=== PATIENT | male | born 1955 | race Caucasian/White ===

== ENCOUNTER 2017-12-03 07:56 | Outpatient (CLI) | payer BC ==
--- NOTE | 2017-12-03 10:24 | MRI ---
LUMBAR SPINE MRI: HISTORY: Back pain (M54.10). TECHNIQUE: Multiplanar, multisequence noncontrast enhanced MR images of the lumbar spine are obtained. FINDINGS: T12-L1: Unremarkable. L1-L2: Unremarkable. L2-L3: Disk desiccation is seen. There is a mild broad-based disk bulge with bilateral facet and li gamentum flavum hypertrophy. This results in mild central and lateral recess stenosis. The neural f oramen are patent. L3-L4: Disk desiccation is seen. There is a broad-based disk bulge with bilateral facet and ligamen shannan flavum hypertrophy. This results in mild central and lateral recess stenosis. The neural forame n are patent. L4-L5: Disk desiccation is seen. There is a broad-based central disk protrusion compressing the the jessica sac, resulting in mild central spinal stenosis. The lateral recesses are patent. No significant evidence of neural foraminal narrowing is seen. Some fluid is seen in the hypertrophied L4-L5 facet joints bilaterally. L5-S1: Disk desiccation is seen. There is minimal anterolisthesis of L5 on S1, measuring approximat taco 3 mm. There are severe facet hypertrophic and degenerative changes, resulting in the facet insta bility and anterolisthesis of L5 on S1. There is a broad-based central disk bulge at L5-S1. IMPRESSION: Broad-based disk bulges at L2-L3 and L3-L4 with broad-based disk protrusion at L4-L5 and broad-based disk bulge at L5-S1. There is anterolisthesis of L5 on S1. Bilateral L5-S1 facet hypertrophic ding es and likely instability are also present. POS: [facility]
== END 2017-12-03 07:57 | disposition home or self-care (01) ==
LOC: SCSMRI 07:56
PROVIDERS: ATTEND Family Medicine
DX: M51.16 Intervertebral disc disorders with radiculopathy, lumbar region (principal); M51.87 Other intervertebral disc disorders, lumbosacral region; M43.16 Spondylolisthesis, lumbar region
CPT/HCPCS: 72148

== ENCOUNTER 2017-12-28 09:43 | Outpatient (CLI) | payer BC ==
--- NOTE | 2017-12-28 11:47 | RAD ---
LUMBAR SPINE: Date: 12/28/17 COMPARISON: None. HISTORY: Back pain, tingling. FINDINGS: Neutral lateral radiograph of the lumbar spine demonstrates no definite anterolisthesis or retrolisth esis. There is facet hypertrophy at L3-4, L4-5, and L5-S1. There is mild anterior osteophyte format ion at L2-3 and L3-4. Flexion imaging demonstrates anterolisthesis of l5 on S1 measuring 7.0 mm. With extension, there is n o definite anterolisthesis or retrolisthesis. IMPRESSION: Mild anterolisthesis of L5 on S1 with flexion. Multilevel lower lumbar spine facet degenerative toña butler. POS: [facility]
== END 2017-12-28 09:44 | disposition home or self-care (01) ==
LOC: RAD 09:43
PROVIDERS: ATTEND Nurse Practitioner Family
DX: M54.5 Low back pain (principal); R20.2 Paresthesia of skin; M47.896 Other spondylosis, lumbar region; M43.16 Spondylolisthesis, lumbar region
CPT/HCPCS: 72120

== ENCOUNTER 2018-01-07 08:14 | Outpatient (CLI) | payer BC ==
--- NOTE | 2018-01-07 10:35 | MRI ---
MRI CERVICAL SPINE WITHOUT CONTRAST: Date: 01/07/18 Multiplanar, multisequential imaging of cervical spine obtained. INDICATION: Cervical pain. Left shoulder pain. FINDINGS: Cervical vertebra maintain height. Degenerative disc changes are seen at all levels with loss of disc space, most prominent at C5-6 and C6-7. There is slight posterior listhesis at C5-6 and C6-7 with a more prominent anterolisthesis at C7-T1 measured at approximately 3.0 mm. At C3-4, disc bulge and spondylosis flattens the thecal sac. The anterior subarachnoid space is prese rved. There is mild foraminal narrowing bilaterally due to facet and uncinate hypertrophy. At C4-5, disc bulge and spondylosis is more prominent effacing the anterior subarachnoid space and ab utting the anterior cord. Bilateral foraminal narrowing due to facet and uncinate hypertrophy. At C5-6, slight posterior subluxation as noted above. Disc bulge and spondylosis effaces the anterior subarachnoid space. Bilateral foraminal narrowing due to facet and uncinate hypertrophy. At C6-7, slight posterior listhesis is noted above. Disc bulge and spondylosis is prominent, effacing the anterior subarachnoid space. No significant cord impingement. Bilateral foraminal narrowing due to facet and uncinate hypertrophy. At C7-T1, anterior listhesis up to 3.0 mm is noted above. Disc bulge and spondylosis efface the anter ior subarachnoid space. No evidence of cord impingement. Foramina appear patent. Cord signal is normal. IMPRESSION: Degenerative disc changes throughout the cervical spine with loss of disc space. Mild subluxation as described above and posterior spondylitic changes at each level with foraminal encroachment as noted above. POS: [facility]
== END 2018-01-07 08:15 | disposition home or self-care (01) ==
LOC: TBSIIMAG 08:14
PROVIDERS: ATTEND Nurse Practitioner Family
DX: M50.10 Cervical disc disorder with radiculopathy, unspecified cervical region (principal); M46.92 Unspecified inflammatory spondylopathy, cervical region; M43.5X2 Other recurrent vertebral dislocation, cervical region
CPT/HCPCS: 72141

== ENCOUNTER 2018-01-11 09:37 | Outpatient (CLI) | payer BC ==
--- NOTE | 2018-01-11 12:09 | RAD ---
6 VIEWS OF THE CERVICAL SPINE: Date: 01/11/18 INDICATION: Cervical radicular pain. FINDINGS: There is slight anterior translation of C3 on C4 and C4 on C5 with slight translation of C5 on C6. No definite abnormal translational motion is seen on the flexion and extension radiographs. There is mu ltilevel disc degenerative and facet osteoarthritic change of the cervical spine. Lateral masses are symmetric. Lung apices are clear. IMPRESSION: 1. Moderate to severe multilevel spondylosis of cervical spine. 2. Mild anterior translation of C3 on C4 and C4 on C5 with mild posterior translation of C5 on C6. W ith flexion and extension, no abnormal translational motion is demonstrated. POS: [facility]
== END 2018-01-11 09:38 | disposition home or self-care (01) ==
LOC: RAD 09:37
PROVIDERS: ATTEND Nurse Practitioner Family
DX: M47.22 Other spondylosis with radiculopathy, cervical region (principal)
CPT/HCPCS: 72052

== ENCOUNTER 2019-02-15 14:35 | Outpatient (CLI) | payer BC ==
--- NOTE | 2019-02-15 15:02 | RAD ---
EXAM: Chest PA and lateral: HISTORY: Persistent cough x1 month COMPARISON: 01/31/2013 FINDINGS: Heart: Normal cardiac silhouette Aorta: Unremarkable Pulmonary vessels: Normal Costophrenic angles: Costophrenic angles are clear. Lungs: No masses or consolidation. Chronic changes in the left lung base. Pneumothorax: No pneumothorax Osseous structures: No osseous abnormalities IMPRESSION: No acute cardiopulmonary process.
== END 2019-02-15 14:36 | disposition home or self-care (01) ==
LOC: SCSRAD 14:35
PROVIDERS: ATTEND Family Medicine
DX: J45.991 Cough variant asthma (principal)
CPT/HCPCS: 71046

== ENCOUNTER 2020-08-06 10:34 | Outpatient (CLI) | payer BC, MEDICARE ==
--- NOTE | 2020-08-06 11:30 | MRI ---
MRI of thethoracic spine without contrast: 08/06/2020 COMPARISON:None available HISTORY:Thoracic spine radiculopathy TECHNIQUE: Multiplanar multisequence MR imaging of thethoracic spine without contrast Findings:Significant multilevel lower cervical spine degenerative change is present, not well assesse d on this exam. At C6-7 there is anterolisthesis measuring approximately 4 mm with associated incompletely assessed central canal and neural foraminal stenosis. T1-2: Mild disc bulge and disc desiccation. Mild bilateral facet hypertrophy with mild right and mode rate left neural foraminal stenosis. T2-3: There is disc space narrowing with disc desiccation and minimal disc bulge. Mild bilateral face t hypertrophy with no significant central canal or neural foraminal stenosis. T3-4: There is disc space narrowing with disc desiccation. There is a small right paracentral disc pr otrusion with mild right lateral central canal stenosis. No significant neural foraminal stenosis. T4-5: Unremarkable T5-6: There is disc space narrowing and disc desiccation. Mild right neural foraminal stenosis on the basis of facet hypertrophy. T6-7: Unremarkable T7-8: Mild disc bulge with no significant central canal stenosis. Bilateral facet hypertrophy with mi ld bilateral neural foraminal stenosis. T8-9: Bilateral facet hypertrophy. Disc desiccation and mild disc bulge. Mild right and mild/moderate left neural foraminal stenosis. No significant central canal stenosis. T9-10: Small central disc protrusion with no associated central canal stenosis. Mild bilateral neural foraminal stenosis on the basis of facet hypertrophy. T10-11:No central canal or neural foraminal stenosis. T11-12:No central canal or neural foraminal stenosis. T12-L1:No central canal or neural foraminal stenosis. Small fat-containing Bochdalek hernia on the right. Thoracic cord demonstrates normal caliber and sig nal intensity. IMPRESSION:Multilevel degenerative change within the thoracic spine
== END 2020-08-06 10:35 | disposition home or self-care (01) ==
LOC: TBSIIMAG 10:34
PROVIDERS: ATTEND Nurse Practitioner Family
DX: M47.24 Other spondylosis with radiculopathy, thoracic region (principal)
CPT/HCPCS: 72146

== ENCOUNTER 2021-12-26 11:35 | Outpatient (CLI) | payer BC, MEDICARE | END 2021-12-26 11:36 | disposition home or self-care (01) | LOC: SCSMRI 11:35 | PROVIDERS: ATTEND Specialist | DX: M51.16 Intervertebral disc disorders with radiculopathy, lumbar region (principal); M47.26 Other spondylosis with radiculopathy, lumbar region; M48.061 Spinal stenosis, lumbar region without neurogenic claudication | CPT/HCPCS: 72148 ==

== ENCOUNTER 2022-01-20 11:39 | Outpatient (CLI) | payer BC, MEDICARE ==
[2022-01-20 12:15] LABS: Hemoglobin 15.9 g/dL (13.5-17.5); Mean Corpuscular HGB CONC 33.9 g/dL (32.0-36.0); Mean Corpuscular Hemoglobin 30.1 pg (27.0-33.0); Mean Corpuscular Volume 88.8 fl (81.2-95.1); Platelet Count 299 10x3/uL (150-450); RBC Distribution Width 12.9 % (11.5-14.5); Red Blood Cell (RBC) Count 5.28 10x6/uL (4.32-5.72); White Blood Cell (WBC) Count 11.8 10x3/uL (3.5-10.5)
[2022-01-20 12:25] LABS: INR-International Normal Ratio 0.9; PTT 26.2 sec (22.0-33.0); Prothrombin Time 9.8 sec (9.5-12.1)
[2022-01-20 12:29] LABS: Anion Gap 16 mmol/L (10-20); BUN (Urea Nitrogen) 21 mg/dL (8.4-25.7); Calc. Creatinine Clearance 0 mL/min (70-130); Calcium 9.9 mg/dL (7.8-10.44); Carbon Dioxide 25 mmol/L (23-31); Chloride 105 mmol/L (98-107); Estimated GFR 68; Glucose 116 mg/dL (80-115); Potassium 4.7 mmol/L (3.5-5.1); Sodium 141 mmol/L (136-145)
== END 2022-01-20 11:40 | disposition home or self-care (01) ==
LOC: LABBT 11:39
PROVIDERS: ATTEND Surgery
DX: Z01.818 Encounter for other preprocedural examination (principal); M51.16 Intervertebral disc disorders with radiculopathy, lumbar region; M48.061 Spinal stenosis, lumbar region without neurogenic claudication; Z20.822 Contact with and (suspected) exposure to COVID-19
CPT/HCPCS: 80048; 85027; 85610; 85730; 87811; 93005; 93010

== ENCOUNTER 2022-01-23 07:23 | Observation (INO) | payer BC, MEDICARE ==
[2022-01-23] MEDS ORDERED: Thrombin 5000 UNITS/5 ML VIAL ONE ×2 (09:11→11:44)
[2022-01-23] MEDS ORDERED: Ondansetron PF 4 MG/2 ML Vial IVP PRN (09:40)
[2022-01-23] MEDS ORDERED: CEFAZOLIN 2 GM VIAL ONE (09:40)
[2022-01-23] MEDS ORDERED: traMADol HCl 50 MG TAB PO PRN (09:40)
[2022-01-23] MEDS ORDERED: Morphine 2 MG/ML VIAL SLOW IVP PRN (09:40)
[2022-01-23] MEDS ORDERED: Acetaminophen 325 MG TAB PO PRN (09:40)
[2022-01-23] MEDS ORDERED: Sodium Chloride 0.9% 100 ML ONE (09:41)
[2022-01-23] MEDS ORDERED: tiZANidine HCl 4 MG TAB PO PRN (09:42)
[2022-01-23] MEDS ORDERED: ceFAZolin 2 GM/Dextrose 50 ML 2 GM in Premix Bag 1 BAG IVPB SCH (09:45)
[2022-01-23] MEDS ORDERED: fentaNYL Citrate/PF 100 MCG/2 ML SYRINGE ONE (09:51)
[2022-01-23] MEDS ORDERED: Glycopyrrolate 0.2 MG/ML 5 ML SYRINGE ONE (09:58)
[2022-01-23] MEDS ORDERED: PROPOFOL 200 MG/20 ML VIAL ONE (09:58)
[2022-01-23] MEDS ORDERED: Ondansetron PF 4 MG/2 ML Vial ONE (09:58)
[2022-01-23] MEDS ORDERED: Rocuronium Bromide 10 MG/ML (10ML VIAL) ONE (09:58)
[2022-01-23] MEDS ORDERED: Phenylephrine 10 MG/ML VIAL ONE (09:58)
[2022-01-23] MEDS ORDERED: Dexamethasone 20 MG/5 ML VIAL ONE (09:58)
[2022-01-23] MEDS ORDERED: Ketorolac Tromethamine 30 MG/ML VIAL ONE (09:58)
[2022-01-23] MEDS ORDERED: Promethazine HCl 25 MG/ML VIAL IM PRN (12:40)
[2022-01-23] MEDS ORDERED: PACU-Morphine 4MG/ML VIAL SLOW IVP PRN (12:40)
[2022-01-23] MEDS ORDERED: Ondansetron HCl/PF 4 MG/2 ML Vial IVP PRN (12:40)
[2022-01-23] MEDS ORDERED: Promethazine HCl 25 MG/ML VIAL IVPB PRN (12:40)
[2022-01-23] MEDS ORDERED: Fentanyl 100 MCG/2 ML VIAL ONE ×2 (12:50→13:10)
[2022-01-23] MEDS ORDERED: tiZANidine HCl 4 MG TAB ONE (12:56)
[2022-01-23] MEDS ORDERED: Albuterol Sulfate 2.5 mg/3 ml Neb NEB PRN (14:12)
[2022-01-23] MEDS: Sodium Chloride 0.9% 1,000 ML IV SCH (15:15)
[2022-01-23 16:03] VITALS: BMI 24.0
[2022-01-23] MEDS: Albuterol Sulfate 2.5 mg/3 ml Neb NEB SCH (18:17)
[2022-01-23] MEDS: Mometasone 100 MCG/Formoterol 5 MCG 120 PUFF INHALER INH SCH (18:19)
[2022-01-23] MEDS: CEFAZOLIN 2 GM in Sodium Chloride 0.9% 100 ML IVPB SCH (18:21)
[2022-01-23] MEDS: metFORMIN 500 MG TAB PO SCH (20:05)
[2022-01-23] MEDS: Acetaminophen/Codeine 30-300mg Tablet PO PRN (20:07)
[2022-01-23] MEDS ORDERED: Atorvastatin Calcium 10 MG TAB PO SCH (21:00)
[2022-01-23] MEDS ORDERED: Montelukast Sodium 10 mg Tablet PO SCH (21:00)
[2022-01-23] MEDS ORDERED: Gabapentin 300 MG CAP PO SCH (21:00)
[2022-01-23] MEDS: HYDROcodone/Acetaminophen 7.5/325 mg Tablet PO PRN (21:34)
[2022-01-24] MEDS: CEFAZOLIN 2 GM in Sodium Chloride 0.9% 100 ML IVPB SCH (02:18)
[2022-01-24] MEDS: Acetaminophen/Codeine 30-300mg Tablet PO PRN (02:20)
[2022-01-24] MEDS: Sodium Chloride 0.9% 1,000 ML IV SCH (05:45)
[2022-01-24] MEDS: Mometasone 100 MCG/Formoterol 5 MCG 120 PUFF INHALER INH SCH (06:37)
[2022-01-24] MEDS: Albuterol Sulfate 2.5 mg/3 ml Neb NEB SCH (06:38)
[2022-01-24] MEDS: HYDROcodone/Acetaminophen 7.5/325 mg Tablet PO PRN ×2 (07:04→13:10)
[2022-01-24] MEDS ORDERED: Empagliflozin 10 MG TAB PO SCH (09:00)
[2022-01-24] MEDS: metFORMIN 500 MG TAB PO SCH (09:41)
[2022-01-24 11:32] VITALS: BP 97/64; TEMP 98.5
[2022-01-24] MEDS ORDERED: Ondansetron ODT 4 MG TAB PO PRN (13:32)
== END 2022-01-24 14:05 | disposition home or self-care (01) ==
LOC: SDC 07:23 → SURG A 09:45
PROVIDERS: ADMIT Surgery; ATTEND Surgery
PROC: 0SB20ZZ Excision of Lumbar Vertebral Disc, Open Approach (ICD-10-PCS; principal; 2022-01-24)
PROC: 01NB0ZZ Release Lumbar Nerve, Open Approach (ICD-10-PCS; 2022-01-24)
DX: M51.16 Intervertebral disc disorders with radiculopathy, lumbar region (principal); M48.061 Spinal stenosis, lumbar region without neurogenic claudication; Z79.82 Long term (current) use of aspirin; Z79.84 Long term (current) use of oral hypoglycemic drugs; Z79.899 Other long term (current) drug therapy; Z88.2 Allergy status to sulfonamides
CPT/HCPCS: 36416; 76000; 94640; 96365; 96376; G0378; J0690; J1100; J1885; J2370; J2405; J2704; J2710; J3010; J3370; J3490; J7611; Q0162